=== PATIENT | female | born 1950 | race Caucasian/White ===

== ENCOUNTER 2020-05-08 13:31 | Emergency (ER) | payer MEDICARE, BC, OTHER, SELFPAY ==
[2020-05-08 13:47] VITALS: BP 150/77; PULSE 66; RESP 16; TEMP 36; O2SAT 98
--- NOTE | 2020-05-08 14:15 | W.ED.GENAD ---
Discharge Plan Disposition Patient Disposition: HOME Condition: Stable Discharge Details Chief Complaint: Laceration Clinical Impression: Crushing injury of finger, right Primary Care Provider: Joyce Nelson ED Provider: April Lynn Home Meds and New Rx's Prescriptions: No Action No Known Home Meds RF: 0 Discharge Instructions Instructions: Skin Adhesive Care (ED), Crush Injury (ED) Additional Instructions: Follow up with primary care provider in 3-5 days. Return to ED sooner if any worsening or concerns. Increase oral fluids. Glue will fall off on its own in 4 to 6 days. Return for any worsening redness, drainage, signs of infection or swelling. Please take Tylenol or Ibuprofen with food every 4-6 hours as needed for pain and swelling. May apply ice 20 minutes on and off for the next few days. Referrals: Joyce Nelson [Primary Care Provider] - Discharge Data Discharge Date/Time-TO BE ENTERED AT DEPARTURE: 05/08/20 15:36 Medical Decision Making 69-year-old female presents with left middle finger distal tip laceration and swelling after smashing finger in a car door approximately 1 hour prior to arrival. She states that the finger was in the car door for approximately 1 minute. She does have a small laceration noted to the dorsal side of her finger measuring approximately 0.5 cm, crescent shaped. Also has a small laceration noted to the base of her nail bed does have full range of motion noted to the distal phalanx. Mild to moderate swelling noted. No other injuries at this time. Unknown last tetanus shot. Will give a Tdap booster, obtain imaging to rule out fracture, and perform wound care. EXAM: XR FINGER LT MIDDLE CLINICAL HISTORY: Crush injury, R/o Fracture. TECHNIQUE: 2D digital imaging was performed. COMPARISON: None. FINDINGS: BONES: No acute fracture is present. No bony destructive lesion is seen. JOINTS: No dislocation present. SOFT TISSUE: Normal. IMPRESSION: No evidence of acute fracture, dislocation, or subluxation. 2 adhesive applied to the laceration, wound was cleaned with chlorhexidine surgical scrub, nonadherent dressing applied patient tolerated procedure well. HPI General Mode of arrival: ambulatory. Date/Time Provider Initiated Documentation: 05/08/20 13:33. Limitations to Documentation: no limitations. Information obtained by: patient. HPI Narrative: 69-year-old female presents with left middle finger distal tip laceration and swelling after smashing finger in a car door approximately 1 hour prior to arrival. She states that the finger was in the car door for approximately 1 minute. She does have a small laceration noted to the dorsal side of her finger measuring approximately 0.5 cm, crescent shaped. Also has a small laceration noted to the base of her nail bed does have full range of motion noted to the distal phalanx. Mild to moderate swelling noted. No other injuries at this time. Unknown last tetanus shot. Will give a Tdap booster, obtain imaging to rule out fracture, and perform wound care. Related Data Home Medications Medication Instructions Recorded Confirmed Unknown [No Known Home Meds] 05/08/20 05/08/20 Allergies Allergy/AdvReac Type Severity Reaction Status Date / Time bee venom protein (honey bee) Allergy Unverified 05/08/20 13:51 Penicillins Allergy Unverified 05/08/20 13:51 General Stated Complaint: Laceration JC: 4 Review of Systems All systems reviewed & are unremarkable except as noted in HPI and below Musculoskeletal Musculoskeletal: Reports as per HPI, Reports joint swelling (Laceration and swelling noted to left middle fingertip), Denies limited range of motion, Denies numbness, Denies radiating pain into limb and Denies tingling Neurologic Neurologic: Denies numbness and Denies tingling [facility] Social History Smoking/Tobacco Use Status: Never Alcohol Intake: current Alcohol Intake frequency: holidays/special occasions only Substance use type: does not use Do you feel safe at home: Yes Do you feel safe in your relationship?: Yes Exam Const General: cooperative, healthy appearing, comfortable and no acute distress Nutritional Appearance: average body habitus Orientation: alert and awake Resp Effort & Inspection: normal respiratory effort and able to speak in complete sentences Cardio Rate: regular rate Rhythm: regular rhythm Extrem General: normal to inspection and full ROM Left upper extremity: hand Details: tenderness, swelling, abrasion Location: of the 3rd digit Location: at the distal phalanx and on the palmar aspect, laceration 3rd digit dorsal aspect distal Details: L-shaped (Base of nail), with motor nerve function intact and with sensation intact and ecchymosis Hand/finger images: 1. Linear laceration to the nailbed 2. Abrasion, superficial laceration with surrounding ecchymosis and swelling Course Vital Signs Vital signs: Vital Signs Temperature 36.0 C L 05/08/20 13:47 Pulse 66 05/08/20 13:47 Respiratory Rate 16 05/08/20 13:47 Blood Pressure 150/77 H 05/08/20 13:47 Pulse Oximetry 98 05/08/20 13:47 Temperature 36.0 C L 05/08/20 13:47 Temperature Source Skin 05/08/20 13:47 Pulse 66 05/08/20 13:47 Respiratory Rate 16 05/08/20 13:47 Respiratory Effort Non-Labored 05/08/20 13:52 Blood Pressure 150/77 H 05/08/20 13:47 Blood Pressure Position Sitting 05/08/20 13:47 Pulse Oximetry 98 05/08/20 13:47 Oxygen Delivery Method Room Air 05/08/20 13:47 Oxygen Flow Rate 0 05/08/20 13:47 Pain Level 2 05/08/20 13:52
--- NOTE | 2020-05-08 14:37 | DI.RAD_ITS ---
EXAM: XR FINGER LT MIDDLE CLINICAL HISTORY: Crush injury, R/o Fracture. TECHNIQUE: 2D digital imaging was performed. COMPARISON: None. FINDINGS: BONES: No acute fracture is present. No bony destructive lesion is seen. JOINTS: No dislocation present. SOFT TISSUE: Normal. IMPRESSION: No evidence of acute fracture, dislocation, or subluxation. DATA REPOSITORY: RADIATION DOSE DELIVERED:
[2020-05-08 15:33] VITALS: PULSE 66; RESP 16; TEMP 36; O2SAT 98
== END 2020-05-08 15:36 | disposition home or self-care (01) ==
PROVIDERS: Emergency Provider Registered Nurse Emergency; PCP Internal Medicine
DX: S67.193A Crushing injury of left middle finger, initial encounter (principal); S61.313A Laceration without foreign body of left middle finger with damage to nail, initial encounter; W23.1XXA Caught, crushed, jammed, or pinched between stationary objects, initial encounter
CPT/HCPCS: 12001; 90471; 99283; 73140; 99281